=== PATIENT | female | born 1980 | race Caucasian/White ===

== ENCOUNTER 2018-09-11 10:08 | Inpatient (IN) | payer MEDICAID ==
[~2018-09-11 10:08] MED LIST: EPHEDrine SULFATE 50 MG/5 ML SYG
[2018-09-11] MEDS ORDERED: MISOPROSTOL 200 MCG TAB PR ×2 (11:00→18:00)
[2018-09-11] MEDS ORDERED: CARBOPROST 250 MCG INJ IM ×2 (11:00→18:00)
[2018-09-11] MEDS ORDERED: CEFAZOLIN 2 GM/50 ML (PMX) 50 ML IVPB (11:00)
[2018-09-11] MEDS ORDERED: METHYLERGONOVINE 0.2 MG INJ IM ×2 (11:00→18:00)
[2018-09-11] MEDS ORDERED: OXYTOCIN 30 UNITS/LR 500 ML IV ×3 (11:00→18:00)
[2018-09-11] MEDS: LACTATED RINGER'S 1,000 ML IV ×2 (11:12→15:23)
[2018-09-11 12:36] LABS: ADD MAN DIFF? NO
[2018-09-11 12:39] LABS: BASOPHILS % 0.4 % (0.0-2.0); EOSINOPHILS # 0.1 10^3/ul (0.0-0.5); EOSINOPHILS % 1.3 % (0.0-7.0); HEMATOCRIT 34.8 % (37.0-47.0); HEMOGLOBIN 11.5 g/dl (12.0-16.0); LYMPHOCYTES # 1.9 10^3/ul (0.8-2.9); LYMPHOCYTES % 24.3 % (15.0-51.0); MEAN CORPUSCULAR HEMOGLOBIN 28.3 pg (29.0-33.0); MEAN CORPUSCULAR VOLUME 85.7 fl (82.0-101.0); MONOCYTE # 0.4 10^3/ul (0.3-0.9); MONOCYTES % 5.2 % (0.0-11.0); NEUTROPHIL # 5.4 10^3/ul (1.6-7.5); NEUTROPHILS % 68.4 % (39.0-77.0); PLATELET COUNT 181 10^3/UL (140-415); RED BLOOD COUNT 4.06 10^6/ul (4.20-5.40); RED CELL DISTRIBUTION WIDTH 13.2 % (11.5-14.5)
[2018-09-11 12:39] LABS: WHITE BLOOD COUNT 7.9 10^3/ul (4.8-10.8)
[2018-09-11 13:26] LABS: INR 0.91; PROTIME 12.4 Sec (11.9-14.9)
[2018-09-11 13:28] LABS: HEPATITIS B SURFACE ANTIGEN NEGATIVE (NEGATIVE)
[2018-09-11] MEDS ORDERED: morphine SULFATE/PF (10 MG/10 ML) INJ (14:07)
[2018-09-11] MEDS ORDERED: PHENYLephrine (100 MCG/ML) 5ML SYG ×2 (14:07→14:41)
[2018-09-11] MEDS ORDERED: HYDROmorphONE 1 MG/5 ML IV SYRINGE IV ×3 (14:30)
[2018-09-11] MEDS ORDERED: FENTAnyl 50 MCG/ML VIAL IV ×2 (14:30)
[2018-09-11] MEDS ORDERED: DIPHENHYDRAMINE 50 MG INJ IV ×2 (14:30)
[2018-09-11] MEDS ORDERED: HYDROmorphONE 0.5 MG/0.5 ML SYG IV ×2 (14:30)
[2018-09-11] MEDS ORDERED: NALOXONE (0.4 MG/ML) INJ IV (14:30)
[2018-09-11] MEDS ORDERED: FENTAnyl 50 MCG/ML VIAL (14:40)
[2018-09-11 15:09] LABS: RAPID PLASMA REAGIN NONREACTIVE (NR)
[2018-09-11] MEDS: KETOROLAC 30 MG INJ IV (15:23)
[2018-09-11] MEDS: ONDANSETRON 4 MG INJ IV (16:52)
[2018-09-11] MEDS ORDERED: HYDROCODONE/APAP (5/325) TAB PO ×2 (18:00)
[2018-09-11] MEDS ORDERED: OXYCODONE/ACETAMINOPHEN (5/325) TAB PO ×2 (18:00)
[2018-09-11] MEDS ORDERED: LANOLIN 7 GM TUBE TOP (18:00)
[2018-09-11] MEDS: OXYTOCIN 30 UNITS/LR 500 ML IV (20:41)
[2018-09-11] MEDS: SENNA/DOCUSATE NA (8.6MG/50MG) TAB PO (21:00)
[2018-09-11] MEDS: CEFAZOLIN 1 GM/50 ML (PMX) 50 ML IVPB (23:05)
[2018-09-12] MEDS: OXYTOCIN 30 UNITS/LR 500 ML IV ×3 (01:50→22:03)
[2018-09-12 07:21] LABS: ADD MAN DIFF? NO
[2018-09-12 07:27] LABS: WHITE BLOOD COUNT 12.2 10^3/ul (4.8-10.8)
[2018-09-12 07:27] LABS: BASOPHILS % 0.2 % (0.0-2.0); EOSINOPHILS % 0.2 % (0.0-7.0); HEMATOCRIT 31.6 % (37.0-47.0); HEMOGLOBIN 10.1 g/dl (12.0-16.0); LYMPHOCYTES % 16.6 % (15.0-51.0); MEAN CORPUSCULAR HEMOGLOBIN 27.4 pg (29.0-33.0); MEAN CORPUSCULAR VOLUME 85.6 fl (82.0-101.0); MEAN PLATELET VOLUME 11.7 fl (7.4-10.4); MONOCYTE # 0.7 10^3/ul (0.3-0.9); MONOCYTES % 5.4 % (0.0-11.0); NEUTROPHIL # 9.4 10^3/ul (1.6-7.5); PLATELET COUNT 163 10^3/UL (140-415); RED BLOOD COUNT 3.69 10^6/ul (4.20-5.40); RED CELL DISTRIBUTION WIDTH 13.1 % (11.5-14.5)
[2018-09-12] MEDS: SENNA/DOCUSATE NA (8.6MG/50MG) TAB PO ×2 (09:52→23:41)
[2018-09-12] MEDS: LACTATED RINGER'S 1,000 ML IV (10:45)
[2018-09-12] MEDS: KETOROLAC 30 MG INJ IV (14:01)
[2018-09-12] MEDS: IBUPROFEN 600 MG TAB PO ×2 (22:03→23:41)
[2018-09-13] MEDS: IBUPROFEN 600 MG TAB PO ×4 (05:53→23:38)
[2018-09-13] MEDS: SENNA/DOCUSATE NA (8.6MG/50MG) TAB PO ×2 (09:01→23:38)
[2018-09-14] MEDS: MEASLES,MUMPS,RUBELLA VACCINE INJ SC* (03:24)
[2018-09-14] MEDS: IBUPROFEN 600 MG TAB PO ×2 (05:49→12:00)
[2018-09-14] MEDS: SENNA/DOCUSATE NA (8.6MG/50MG) TAB PO (09:26)
[2018-09-14] MEDS: DIPHTH/TET/ACEL PERTUSS (ADULT) 0.5 ML VIAL IM* (09:27)
== END 2018-09-14 12:40 | disposition home or self-care (01) | DRG 785 ==
LOC: L-D 10:08 → PP1 17:24
PROVIDERS: Obstetrics & Gynecology
PROC: 10D00Z1 Extraction of Products of Conception, Low, Open Approach (ICD-10-PCS; principal; 2018-09-11 12:30)
PROC: 0UB70ZZ Excision of Bilateral Fallopian Tubes, Open Approach (ICD-10-PCS; 2018-09-11 12:30)
DX: O34.219 Maternal care for unspecified type scar from previous cesarean delivery (principal); Z3A.39 39 weeks gestation of pregnancy; Z30.2 Encounter for sterilization; Z37.0 Single live birth
CPT/HCPCS: 85025; 85610; 85730; 86592; 86850; 86900; 86901; 87340; 88302; 90686; 90715; 99464